=== PATIENT | male | born 1995 | race African-American/Black ===

== ENCOUNTER 2019-03-12 12:19 | Emergency (ER) | payer SELFPAY ==
[~2019-03-12] VITALS: Ht 200.7 cm; Wt 81.6 kg
[2019-03-12 12:36] VITALS: BP 135/93
[2019-03-12] MEDS ORDERED: AZITHROMYCIN 250 MG TABLET. PO ONE (12:45)
[2019-03-12] MEDS ORDERED: cefTRIAXone IM 250 MG VIAL IM ONE (12:45)
--- NOTE | 2019-03-12 12:47 | PHYS DOC ---
Past Medical History Past Medical History: No Pertinent History Past Surgical History: No Surgical History Alcohol Use: Rarely Drug Use: None Adult General Chief Complaint Chief Complaint: SEXUALLY TRANSMITTED DISEASE HPI HPI Patient is a 24 year male patient presenting to the ED today requesting STD treatment, significant other was diagnosed with chlamydia. Patient has no symptoms. Review of Systems Review of Systems Constitutional: Denies fever or chills [] GI: Denies abdominal pain, nausea, vomiting, bloody stools or diarrhea [] : STD treatment. Denies dysuria or hematuria [] Musculoskeletal: Denies back pain or joint pain [] Integument: Denies rash or skin lesions [] Neurologic: Denies headache, focal weakness or sensory changes [] All other systems were reviewed and found to be within normal limits, except as documented in this note. Physical Exam Physical Exam Constitutional: Well developed, well nourished, no acute distress, non-toxic appearance. [] Abdomen: Bowel sounds normal, soft, no tenderness, no masses, no pulsatile masses. [] Skin: Warm, dry, no erythema, no rash. [] Back: No tenderness, no CVA tenderness. [] Extremities: No tenderness, no cyanosis, no clubbing, ROM intact, no edema. [] Neurologic: Alert and oriented X 3, normal motor function, normal sensory function, no focal deficits noted. [] Psychologic: Affect normal, judgement normal, mood normal. [] EKG EKG [] Radiology/Procedures Radiology/Procedures [] Course & Med Decision Making Course & Med Decision Making Pertinent Labs and Imaging studies reviewed. (See chart for details) This is a 24-year-old male patient presenting to the ED today requesting STD treatment- Significant other was diagnosed with chlamydia. Patient was treated and the patient was provided. Dragon Disclaimer Dragon Disclaimer This electronic medical record was generated, in whole or in part, using a voice recognition dictation system. Departure Departure Impression: Primary Impression: Concern about STD in male without diagnosis Disposition: 01 HOME, SELF-CARE Condition: STABLE Referrals: NO PCP (PCP) follow with the health department next week Patient Instructions: Sexually Transmitted Disease Additional Instructions: You were provided STD treatment in the ED. Use protection at all times. TOLU BERMUDEZ APRN Mar 12, 2019 12:47
== END 2019-03-12 13:31 | disposition home or self-care (01) ==
LOC: ER 12:19
DX: Z20.2 Contact with and (suspected) exposure to infections with a predominantly sexual mode of transmission (principal)
CPT/HCPCS: 96372; 99283; J0696; Q0144